=== PATIENT | male | born 1950 | race Caucasian/White ===

== ENCOUNTER → 2020-11-16 10:30 | Outpatient (CLI) | payer OTHER, SELFPAY ==
[2020-11-16 11:48] LABS: COVID19 -Nasal RAPID Negative (Negative)
== END ==
PROVIDERS: Visit Provider Student in an Organized Health Care Education/Training Program
DX: Z01.812 Encounter for preprocedural laboratory examination (principal); Z20.822 Contact with and (suspected) exposure to COVID-19
CPT/HCPCS: 87635

== ENCOUNTER 2020-11-18 12:19 | Observation (INO) | payer OTHER, SELFPAY ==
[2020-11-13 08:41] VITALS: BMI 28.2
[2020-11-18] VITALS (13 sets, daily range): BP systolic 113–142; BP diastolic 54–85; PULSE 57–87; RESP 12–19; TEMP 35.9–36.6; O2SAT 97–100; BMI 28.2
--- NOTE | 2020-11-18 09:48 | DI.RAD.S_ITS ---
PROCEDURE: XR KNEE LT 1TO2V INDICATIONS: post op total knee TECHNIQUE: 2 view(s) of the knee acquired. COMPARISON: None. FINDINGS: Bones: Patient is status post knee joint arthroplasty. Hardware components are in expected positions. Visualized bony structures are intact. Soft tissues: Overlying postoperative changes are noted. IMPRESSION: Expected postoperative appearance of left TKA. Dictated by: Keaton Pryor RRA Interpreted: Kwesi Pringle MD on 11/18/2020 at 16:31 Transcribed by: LAURITA on 11/18/2020 at 16:31 Approved by: Kwesi Pringle M.D. on 11/18/2020 at 17:23
[2020-11-18] MEDS: ACETAMINOPHEN 325 MG TABLET 975 MG PO (12:46)
[2020-11-18] MEDS: CELECOXIB 200 MG CAPSULE PO (12:47)
[2020-11-18] MEDS: LACTATED RINGERS 1,000 ML 42 ML IV ×2 (12:47→15:06)
[2020-11-18] MEDS: PREGABALIN 75 MG CAPSULE PO (12:47)
--- NOTE | 2020-11-18 12:54 | PM.PREOP ---
Pre-operative Note COVID-19 COVID-19 status: Negative Result date/Date tested (Pos, Neg/Pending): 11/16/20 Interval Note History & Physical reviewed/Exam performed by Physician: Yes Changes to H&P: No
[2020-11-18] MEDS: CEFAZOLIN 1 GM VIAL 2 GM IV (13:30)
[2020-11-18] MEDS: TRANEXAMIC ACID 1,000 MG VIAL 1000 MG INJ (13:50)
--- NOTE | 2020-11-18 14:02 | SUR.OPER ---
Supine on padded OR bed. Pillow under head, arms secured on padded armboards <90 degree abduction. Safety belt across torso. Non-operative leg secured with tape over blanket over lower leg. Operative leg secured in DeMayo/Zacarias/Nathe positioner. Foam padded brace at thigh of operative leg.
[2020-11-18] MEDS: BUPIVACAINE LIPOSOME 266 MG/20 ML VIAL INJ (14:11)
[2020-11-18] MEDS: MORPHINE 4 MG/ML INJ INJ (14:12)
[2020-11-18] MEDS: BUPIVACAINE 0.25% W/ EPI 30 ML VIAL 60 ML INJ (14:12)
--- NOTE | 2020-11-18 15:27 | P.OP_ITS ---
Operative Date/Time/Diagnoses Date of procedure: 11/18/20 Time of procedure: 15:27 Pre-op diagnosis: Left knee osteoarthritis Post-op diagnosis: same Procedure & Clinicians Procedure: Left total knee replacement Same procedure as scheduled: Yes Indications: The patient has had progressively worsening left knee pain with radiographic changes consistent with arthritis. Non-operative management has failed and the patient has requested total knee replacement. The risks, benefits and alternatives to surgery were discussed with the patient prior to proceeding. Risks discussed included, but were not limited to, failure to relieve pain, stiffness, infection, nerve damage, deep venous thrombosis, pulmonary embolism, stroke, coma, heart attack, permanent paralysis and , as well as the potential need for eventual revision of the prosthetic. Surgeon: John Hickman Animal Husbandry Technician: Yoni Cm Click Yes if Unassisted: No Anesthesia Type: General and Local Operative Notes Findings: Severe osteoarthritis in all 3 compartments, worst on the medial side. Closure Type: primary Specimen(s): none sent Prosthetic devices, grafts, tissues, transplants, or devices: Implants used in this procedure were manufactured by the [employer] and [employer] and included the BCS II Journey total knee replacement with a size 8 left Oxinium femoral component, 7 left non porous tibial base plate, 9 mm cross-linked polyethylene tibial insert and a 38 mm oval patellar component. Applied: implant(s) Estimated Blood Loss (mL): 50 Blood products transfused: none Tourniquet time (min): 59 Procedure in detail: The patient was seen in the pre-operative area, where the left knee was identified as the operative site and this was marked with murali patrick. The patient received pre-operative antibiotics, and was taken to the operating room and placed on the operative table in the supine position. After satisfactory anesthesia, a laboratory asst out was performed. The left leg was encircled with a tourniquet about the proximal thigh, and the leg was prepared from the toes to the tourniquet with ChloraPrep in the usual fashion and draped through sterile drapes. The leg was elevated and exsanguinated with Eschmark bandage and the tourniquet inflated to 250 mmHg pressure. The knee was approached through an approximately 18 cm incision centered over the patella and carried into the knee through a medial parapatellar arthrotomy. The anterior osteophytes and soft tissues were removed. The rotational landmarks of Ciarra's line and the transepicondylar axis were marked on the femur with electrocautery, and intramedullary guide holes for the femur and tibia were created. The distal femoral cut was made in 6 degrees of valgus using the intramedullary guide at the +2 cut setting due to a pre-existing flexion contracture. The proximal tibial cut was then made using the intramedullary guide, taking 9 mm of bone off the less involved side. The extension gap was checked and the rotation of the femoral component confirmed with the gap balancing blocks. The anterior, posterior and chamfer cuts were then made. The posterior osteophytes and soft tissues were then removed. The posterior capsule was injected with part of a mixture of 60 ml 0.25% Marcaine mixed with 20 ml Exparel and 4 mg of morphine for post-operative pain control. The remainder of this mixture was injected into the capsule and subcutaneous tissues during cement curing. The tibia was prepared with the rotation set by an extra medullary guide. Trial tibial and femoral components were then placed and the intercondylar notch cut through the femoral trial. Range of motion was 0-140 degrees, with good stability throughout the range. The patella was then cut to accommodate the patellar prosthetic. There was no need for a lateral release. The trials were then removed, and the femoral hole plugged with a bone plug. The bone was prepared with pulsatile lavage, and dried with a sponge. Cement was applied and the final prosthetics placed. Excess cement was removed during and after cement curing. After confirming there was no extruded cement posteriorly, the final tibial insert was placed. The knee was copiously irrigated and the tourniquet deflated. Hemostasis was obtained. The capsule was closed with interrupted # 2 polyester sutures. The subcutaneous layer was closed with 3-0 Vicryl, and the skin with a running 3-0 V-Lock suture and Dermabond. An Aquacel Ag dressing was applied and the patient was taken to recovery having tolerated the procedure well. Complications: none Post-operative Condition: stable Disposition: PACU Plan for aftercare: The patient will be maintained on a standard total knee replacement protocol with weight bearing as tolerated. The patient will receive aspirin and sequential compression devices for DVT prophylaxis. The patient will be discharged home when safe for the home environment.
--- NOTE | 2020-11-18 15:43 | SUR.PHASEI ---
received to PACU after general / spinal anesthesia. Airway patent, self maintained. Report from Dr Serna and MARIE Rachel.
--- NOTE | 2020-11-18 16:09 | SUR.PHASEI ---
Transferred to room 225 with belongings bag. Received in room by MARIE Londono.
[2020-11-18] MEDS: LACTATED RINGERS 1,000 ML 100 ML IV (16:41)
[2020-11-18] MEDS: OXYCODONE IR 5 MG TABLET PO (19:12)
[2020-11-18] MEDS: ASPIRIN EC 81 MG TABLET PO (20:10)
[2020-11-18] MEDS: DOCUSATE 100 MG CAPSULE PO (20:14)
[2020-11-18] MEDS: IBUPROFEN 400 MG TABLET PO (20:14)
[2020-11-18] MEDS: ACETAMINOPHEN 325 MG TABLET 650 MG PO (20:14)
[2020-11-18] MEDS: METFORMIN HCL 500 MG TABLET PO (20:15)
[2020-11-18] MEDS: OXYCODONE IR 10 MG TABLET PO (21:22)
--- NOTE | 2020-11-18 22:18 | PC.NURSE ---
Pt arrived from PACU 1640 Alert/orineted, Luiungs clear, SpO2 98% RA IVF infusing as per orders via pump w/o incidence. AC CBG = 114 Aquacell/natali wrap dsg CDI SCD in place. Med w/oxycodone x 2 w/fair relief, Call light w/in reach, bed alarm on for pt safety. COntinue w/plan of care.
[2020-11-19] VITALS (15 sets, daily range): BP systolic 85–143; BP diastolic 47–81; PULSE 55–92; RESP 16–18; TEMP 36.2–37.1; O2SAT 97–100
[2020-11-19] MEDS: IBUPROFEN 400 MG TABLET PO ×5 (00:53→21:35)
[2020-11-19] MEDS: OXYCODONE IR 10 MG TABLET PO (00:58)
[2020-11-19] MEDS: ONDANSETRON 4 MG/2 ML INJ IV (01:14)
[2020-11-19] MEDS: LACTATED RINGERS 1,000 ML 100 ML IV ×3 (01:16→18:19)
--- NOTE | 2020-11-19 01:45 | PC.NURSE ---
0045 Pt stated he had not voided and did not feel that he needed to but was willing to try standing to void. Pt able to stand at the side of the bed and eventually peed but became dizzy and collapsed back onto the bed and into my arms. Pt unresponsive and briefly stopped breathing, was diaphoretic, and extremely pale. Staff Emergency called-Pt very slowly became responsive and started breathing, nausea and vomiting ensued and continues intermittently through 0155 for an approximate total of 350cc emesis out. Pt given Zofran at 0014. IVF infusing as ordered. Pt regained his color but states he still feels nauseated. Pt vs checked and are documented. BG checked at 0146 with a result of 180. Pt gown and bedding changed and Pt cleaned up. Pt denies pain at this time. Bed alarm on for safety, scd's on and running, Pt agrees to call for assistance as needed.
[2020-11-19] MEDS: ONDANSETRON 4 MG ODT PO ×2 (02:26→11:35)
[2020-11-19 05:04] LABS: Hematocrit 38.5 % (41-53); Hemoglobin 12.6 g/dL (13.5-17.5)
--- NOTE | 2020-11-19 07:46 | PM.PNPO.1 ---
Subjective Subjective Date Patient Seen: 11/19/20 Time Patient Seen: 07:46 Interval history: Patient's pain is [id number]. Denies shortness of breath or chest pain. No fever or chills. Some nausea and vomiting yesterday afternoon. Patient got up to use the restroom and had a syncopal episode. Patient then vomited several times afterwards. Patient did remain stable overnight. Exam Vital Signs (past 8 hours): - 11/19/20 00:49 11/19/20 01:14 11/19/20 01:30 Temperature 97.2 F L Pulse Rate 74 83 70 Respiratory Rate 16 18 Blood Pressure 127/71 136/77 132/69 Pulse Oximetry 97 98 98 11/19/20 04:30 Temperature 97.9 F Pulse Rate 78 Respiratory Rate 18 Blood Pressure 136/81 Pulse Oximetry 100 Oxygen Delivery Method Room Air Oxygen Flow Rate 0 Narrative Exam Narrative: 69-year-old male resting comfortably in bed in no apparent distress. Left knee dressing is Clean, dry, intact.. Motor functions intact distal left lower extremity. Left leg is warm and dry. Sensation grossly intact to light touch distal left lower extremity. Objective Labs Result Diagrams: 11/19/20 04:25 Labs: Laboratory Results - last 24 hr 11/19/20 04:25 Hgb 12.6 L Hct 38.5 L PFSH Medical History Depression Diabetes (~02/2020) HTN (hypertension) Neuropathy Osteoarthritis Pneumonia Rheumatic fever Weight loss, intentional Surgical History History of carpal tunnel release of both wrists History of total right hip arthroplasty (02/12/14) History of vasectomy (1976) Social History household members: spouse Smoking Status: Former smoker alcohol intake: former Assessment & Plan Post-op Postoperative Procedures: Procedures Operation Date: 11/18/20 14:45 Actual Procedure Side Surgeon p Total Knee Arthroplasty Left John Hickman MD Postoperative status narrative: Stable. Syncopal episode around 1245 this morning. Postoperative plan narrative: Mobilize with physical therapy. If patient remains stable possible discharge home today. Quality VTE Deep Vein Thrombosis/Pulmonary Embolism Present on Admission: No
[2020-11-19] MEDS: DOCUSATE 100 MG CAPSULE PO ×2 (10:11→21:35)
[2020-11-19] MEDS: ACETAMINOPHEN 325 MG TABLET 650 MG PO ×3 (10:12→21:35)
[2020-11-19] MEDS: lisinopriL 5 MG TABLET PO (10:12)
[2020-11-19] MEDS: METFORMIN HCL 500 MG TABLET PO ×2 (10:12→21:34)
[2020-11-19] MEDS: ASPIRIN EC 81 MG TABLET PO ×2 (10:12→21:35)
[2020-11-19] MEDS: OXYCODONE IR 5 MG TABLET PO (10:46)
--- NOTE | 2020-11-19 11:05 | PT.IIE ---
Current Diagnoses Unilateral primary osteoarthritis, left knee (11/18/20) Surgery Performed Operation Date: 11/18/20 14:45 Actual Procedures p Total Knee Arthroplasty(Left) - John Hickman MD Medical History (Last Reviewed 11/19/20 @ 07:47 by Miguel Ángel Ernandez PA-C) Depression Diabetes (~02/2020) HTN (hypertension) Neuropathy Osteoarthritis Pneumonia Rheumatic fever Weight loss, intentional Physical Therapy Inpatient Evaluation/Re-Eval M1 PT/OT-IP Prior Functional Status Start: 11/19/20 12:36 Freq: NEEDED Status: Active Protocol: Document 11/19/20 11:05 AB (Rec: 11/19/20 12:51 AB [email or web address]) Medical Review Prior Functional Status Medical History Reviewed Yes Communication able to make needs known Mobility and Gait pt stated taht he is independent with all mobiltiies and ambulation without AD Social History Household Members spouse Living Arrangements House Number of Floors (Floors) One Floor Number of Stairs To Enter/Railing? 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 M2 PT-IP Current Condition Start: 11/19/20 12:36 Freq: NEEDED Status: Active Protocol: Document 11/19/20 11:05 AB (Rec: 11/19/20 12:51 AB [email or web address]) Physical Therapy Current Condition Current Condition Evaluation Date 11/19/20 Treatment Diagnosis s/p L TKR; difficulty in walking Onset Date 11/18/20 Weight Bearing Status Weight Bearing Status Weight Bear as Tolerated Allowed Weight Bearing Amount (enter % LLE WBAT or #) (%) M3 PT-IP Subjective Start: 11/19/20 12:36 Freq: NEEDED Status: Active Protocol: Document 11/19/20 11:05 AB (Rec: 11/19/20 12:51 AB [email or web address]) Subjective Physical Therapy Visit Type Type Initial Evaluation Visit Start Time 11:05 Visit Stop Time 11:41 Total Visit Minutes 36 Number of [employer] 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 Physical Therapy Visit Comments Patient Comments pt is agreeable to do PT Therapy Pain Assessment Pain When Pain Assessed At Rest Pain Present Pain Present Pain Reported Location Left Knee Intensity 4 Scale Used increases 5-6/10 with mobility Pain Management Techniques Apply Cold,Distraction, Modification of Treatment, Timing of Activity with Medications M4 PT-IP Mobility and Gait Start: 11/19/20 12:36 Freq: NEEDED Status: Active Protocol: Document 11/19/20 11:05 AB (Rec: 11/19/20 12:51 [email or web address]) PT-Bed Mobility Assessment Supine to Sit Supine to Sit Standby Assistance Sit to Supine Sit to Supine Standby Assistance PT-Transfer Assessment Comments Mobility Comments pt supine in bed. agreed to do PT. heel slide completed with assist. pt has ~ 20-30 deg knee flexion contracture on LLE and only able to bend knee to ~ 40-45 deg PROM with increase guarding and tightness with mobility. BP in supine:122/75 with HOB elevated. attempted supine to sit SBA and cues but pt only sat on ~ 1 sec and laid back on the bed. stated that he feels very shaky and getting nauseated. BP checked: 137/75 . pt agreed to sit up again and completed supine to sit SBA and cues. requried CGA for sitting balance. c/o increase nausea. BP: 97/61. pt sat on EOB for a few more minutes and then c/o getting sweaty. BP checked : 100/42. pt requested to lay back in bed and completed sit to supine SBA. SBA with scooting towards HOB and postioning in bed. BP checked: 108/63. continues to c/o nausea. nurse informed and gave pt medication. BP checked after ~ 2 min: 125/75. pt requested to rest for now. call light and table placed within reach. Gait Assessment Comments Gait Comments unable at this time PT-Balance Assessment Sitting Balance and Reactions Static Sitting Balance Ability Good Dynamic Sitting Balance Ability Good M5 PT-IP Objective Assessments Start: 11/19/20 12:36 Freq: NEEDED Status: Active Protocol: Document 11/19/20 11:05 AB (Rec: 11/19/20 12:51 [email or web address]) Orientation Orientation/Cognition Level of Alertness Alert Orientation Name,Age,Birthday,Month,Date, Year,Day of Week,Place, Situation Language Function Ability No Deficits Noted Safety Awareness Understands Safety Issues Memory Description No Deficits Noted Gross Range of Motion Lower Extremity ROM Assessment Left Impaired Impairments L knee flexion: PROM: ~40-45 deg; L knee extension: 20-30 deg less to 0 deg Strength Lower Extremity Strength Assessment Left Impaired Comments Strength Comments pain limiting mobility of LLE Muscle Tone Muscle Tone WNL Yes M6 PT-IP Treatment Start: 11/19/20 12:36 Freq: NEEDED Status: Active Protocol: Document 11/19/20 11:05 AB (Rec: 11/19/20 12:51 AB [email or web address]) Physical Therapy Treatment Exercises Exercises Heel Slides Education Education Provided Precautions,Weight Bearing Status,Post-Op Packet,Safety M7 PT-IP Assessment and Plan Start: 11/19/20 12:36 Freq: NEEDED Status: Active Protocol: Document 11/19/20 11:05 AB (Rec: 11/19/20 12:51 AB [email or web address]) PT Summary Assessment and Plan Potential Rehabilitation Potential Fair Status of Condition at Evaluation Evolving Summary Impairments Pain,ROM,Strength,Balance, Coordination,Sensation,Tone, Cognition,Bed Mobility, Transfers,Gait,Activity Tolerance Assessment Summary pt unable to tolerate much activity with decrease in BP with sitting on EOB and c/o nausea and sweatiness. pt has h/o LOC last night with nursing. will continue to assess progress and when appropriate, will conduct caregiver training. Goals Bed Mobility Goal Standby Assistance Transfer Goal Standby Assistance,Front Wheeled Walker,Four Wheeled Walker Gait Goal Standby Assistance,Front Wheel Walker,Four Wheel Walker Gait Distance 200 Days to Meet Goals 5 Frequency of Treatment Frequency Of Treatment Twice a Day Treatment Plan Physical Therapy Treatment Plan Bed Mobility Training,Transfer Training,Gait Training, Therapeutic Exercise,Balance Retraining,Post Op Education, Discharge Planning,Hot or Cold Pack,Neuromuscular Re-ed, Coordination Retraining,Manual Therapy Precautions Other Precautions LLE WBAT Recommendations To Nursing Amount of Assist Needed PT/OT Assist Only Discharge Recommendations PT Discharge Recommendations Home with Assistance, Outpatient PT Equipment Needed for Home Before FWW if not safe with 4WW Discharge Transportation Needs at Discharge Private Vehicle
--- NOTE | 2020-11-19 11:06 | PM.DS.1 ---
History of Present Illness History of Present Illness Date Patient Seen: 11/19/20 Time Patient Seen: 11:06 Chief complaint: Knee pain Narrative: Patient status post total knee arthroplasty. Patient had a syncopal episode last night and then got nauseous and vomited a few times. Nausea vomiting has resolved with Zofran. He denies any dizziness. No fever chills. No shortness of breath or chest pain. States his knee pain is well controlled. Discharge Providers Provider Date of admission: 11/18/20 12:19 Discharge Date: 11/19/20 Primary care physician: Doctor Ho MD Consults: 11/18/20 16:29 Consult to Discharge Planning Routine Comment: Consult to Physical Therapy Evaluate & Treat Comment: Physician Instructions: postop TKA protocol Consult to Respiratory Therapy Evaluate & Treat Comment: Physician Instructions: Evaluate and treat Discharge provider: Miguel Ángel Ernandez PA-C Summary Hospital Course Discharge Diagnosis: Left knee osteoarthritis Syncopal episode Hospital Course: Procedure: Left total knee replacement Same procedure as scheduled: Yes Indications: The patient has had progressively worsening left knee pain with radiographic changes consistent with arthritis. Non-operative management has failed and the patient has requested total knee replacement. The risks, benefits and alternatives to surgery were discussed with the patient prior to proceeding. Risks discussed included, but were not limited to, failure to relieve pain, stiffness, infection, nerve damage, deep venous thrombosis, pulmonary embolism, stroke, coma, heart attack, permanent paralysis and , as well as the potential need for eventual revision of the prosthetic. Surgeon: John Hickman Typer: Yoni Cm Click Yes if Unassisted: No Anesthesia Type: General and Local Operative Notes Findings: Severe osteoarthritis in all 3 compartments, worst on the medial side. Closure Type: primary Specimen(s): none sent Prosthetic devices, grafts, tissues, transplants, or devices: Implants used in this procedure were manufactured by the [employer] and [employer] and included the BCS II Journey total knee replacement with a size 8 left Oxinium femoral component, 7 left non porous tibial base plate, 9 mm cross-linked polyethylene tibial insert and a 38 mm oval patellar component. Applied: implant(s) Estimated Blood Loss (mL): 50 Blood products transfused: none Tourniquet time (min): 59 Patient admitted to the hospital for left total knee arthroplasty. Patient consented to the same. Patient taken to the OR on 11/18/2020 for left total knee arthroplasty. Patient back in his room recovering well as in stable condition. Early this morning patient was trying to urinate and has syncopal episode. Patient developed some nausea vomiting which resolved with Zofran. Patient has remained stable. He will work with physical therapy. Patient will be discharged home today after physical therapy if stable for home environment Exam Vital Signs (past 8 hours): - 11/19/20 04:30 11/19/20 08:00 11/19/20 10:12 Temperature 97.9 F 98.7 F Pulse Rate 78 74 74 Respiratory Rate 18 18 Blood Pressure 136/81 143/62 H 143/62 H Pulse Oximetry 100 99 Oxygen Delivery Method Room Air Oxygen Flow Rate 0 Objective Labs Result Diagrams: 11/19/20 04:25 Labs: Laboratory Results - last 24 hr 11/19/20 04:25 Hgb 12.6 L Hct 38.5 L PFSH Medical History Depression Diabetes (~02/2020) HTN (hypertension) Neuropathy Osteoarthritis Pneumonia Rheumatic fever Weight loss, intentional Surgical History History of carpal tunnel release of both wrists History of total right hip arthroplasty (02/12/14) History of vasectomy (1976) Social History household members: spouse Smoking Status: Former smoker alcohol intake: former Discharge Assessment & Plan Assessment and Plan Assessment: Patient progressing as expected status post left total knee arthroplasty Plan of Treatment: Weight-bearing as tolerated. Patient will be maintained on a standard total knee replacement protocol. Aspirin for DVT prophylaxis. Follow-up in 2 weeks [facility]. Discharge Plan Discharge Plan Patient Disposition: Home Discharge orders & Medications Prescriptions: New acetaminophen 325 mg Tablet 650 mg PO TID Qty: 60 RF: 0 aspirin 81 mg Tablet,Delayed Release (Dr/Ec) 81 mg PO BID Qty: 60 RF: 0 ibuprofen 400 mg Tablet 400 mg PO Q4HR Qty: 60 RF: 0 oxycodone 5 mg Tablet 5 mg PO Q3HR PRN (Reason: Pain, Moderate (4-6)) Qty: 40 RF: 0 polyethylene glycol 3350 17 gram Powder In Packet 17 gm PO DAILY PRN (Reason: Constipation) Qty: 10 RF: 0 Continued metformin 500 mg Tablet 500 mg PO BID RF: 0 lisinopril 5 mg Tablet 5 mg PO DAILY RF: 0 Discontinued aspirin [Aspirin Low-Strength] 81 mg Tablet,Delayed Release (Dr/Ec) 81 mg PO DAILY RF: 0 acetaminophen 500 mg Tablet 1,000 mg PO Q6H PRN (Reason: Pain) RF: 0 Follow up/Referrals: Doctor Teague MD [Primary Care Provider] - John Hickman MD [Physician] - (2 weeks) Diet/Activity/Treatments Diet: Carb-consistent/Diabetic Activity: Weight-bearing as tolerated Cold/Heat Therapy: Apply ice to knee as needed Other treatments: Justus wrap may be removed in 48-72 hours, dressing should remain in place till postop appointment Skin/Wound/Dressing Care Report to your healthcare provider any signs of infection, such as:: chills, fever, increased pain, unusual drainage and unusual redness Dressing: Keep dressing clean and dry. Visit Report/Discharge Packet Instructions: DI for Knee Replacement, DI for Prescription Opioid Use Stand Alone Forms: Surgery Discharge Discharge Data Primary Care Provider: Doctor Ho Attending Provider: John Hickman Quality VTE Deep Vein Thrombosis/Pulmonary Embolism Present on Admission: No
--- NOTE | 2020-11-19 11:51 | CM.DANOTE ---
Discharge Planning/Care Management Advanced directive, confirm from FAMILY Start: 11/18/20 16:36 Freq: Q24H Status: Active Protocol: Document 11/18/20 16:52 KMD (Rec: 11/18/20 16:52 KMD [id number]) Advance Directive, confirm on record Time 16:52 Person contacted Patient Copy received No CM Discharge Assessment Start: 11/19/20 11:50 Freq: Status: Active Protocol: Document 11/19/20 11:51 ITV (Rec: 11/19/20 11:51 ITV [id number]) Discharge Planning Assessment Advance Directives? Yes Advance Directives on File No History Provided By Patient Prior Living Arrangements House Household Members spouse Review Status In Process Pre-Anesthesia Assessment Start: 11/13/20 08:41 Freq: Status: Active Protocol: Document 11/13/20 08:41 CAB (Rec: 11/13/20 09:26 CAB [id number]) Pre-Anesthesia Assessment Patient Information Reviewed Via Phone Assessment Assessment Completed With Patient H&P Completed Within 30 Days No: Not identified at time of review Comment Labs/EKG done per pt, not here , COVID screen @ [facility] 11/16/20 Primary Care Provider Mack Gallagher Seen Specialist in Last 12 Months Yes Specialist Seen Orthopedist Primary 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 Height 187.96 cm Weight 99.79 kg Body Mass Index (BMI) 28.2 Hearing Ability Hard of Hearing Visual Assist Glasses Dentition Type Teeth, Natural Present Barriers to Learning None Hx Anesthesia Reactions No Hx Family Anesthesia Reaction No Hx Malignant Hyperthermia No Hx Blood Transfusions No Anesthesia Review Requested No alcohol intake former Smoking Status Former smoker how long ago did patient quit smoking 09/30/72 Substance Use Type does not use Pain Present Pain Reported Musculoskeletal Symptoms Abnormal Gait,Difficulty Walking,Joint Pain,Numbness History of Falling (Recent or History of No ) Patient is completely paralyzed or No completely immobile Mental Status Oriented to own ability Is patient on oxygen? No Does patient have ASKEW/SOB No Hx Sleep Apnea No Currently Taking a Beta Francis No Hx Chest Pain No Hx SOB No Hx Syncope or Dizziness Yes: Hx vertigo Anti-Coagulant Therapy No Has a Social Service Director No Cardiac Testing No Hx Pacemaker/ICD No Pacemaker Rep Required? No Cardiac Clearance Received Not Applicable Diet Type At Home Other dysphagia No: Whole 30 diet Urinary Catheter Present No Hx Urinary Self Catheterization No Diabetes Yes: Pt checks blood sugar twice a day Presence of External or Internal Medical Yes: Right hip Devices Have you had any close contact with No someone diagnosed with COVID-19? Marital Status Lives With spouse Prior Living Arrangements House Number of Floors (Floors) Two Floors Support System Spouse Does the Patient Have Assistance After Yes Surgery Patient Discharge Plan Description Return Home Comment Pt advised overnight length of stay per surgeon Feels Safe in Current Environment Yes Been Physically Hurt or Threatened By a No Person in Current Environment Do you have thoughts of harming yourself None or others? Are you currently considering suicide? No Do you have a plan to hurt yourself or No Plan others? Do You Have Any Spiritual Beliefs That No May Affect Your HC Choices? Do You Have Any Cultural Practices That No May Affect Your HC Choices? Who Can We Speak to About Patient's Care Family, friends Identifying Code for Release of Patient Declines to issue Information Health Care Proxy/Next of Kin Bhakti () Health Care Proxy or cell: Emergency Contact Name Bhakti () Emergency Contact or cell: [phone] Advance Directives? Yes Advance Directives on File No Requested Patient Bring Advanced Yes Directives DOS Power of Fixed Wing Pilot Yes Power of Fixed Wing Pilot Name Bhakti () Power of Fixed Wing Pilot or cell: PAC Instructions Diabetes instructions,Durable medical equipment,Medications to take/avoid,Nasal antibiotic ,No ETOH/petroleum product on skin DOS,NPO,Post-op transportation,Pre-surgical wash,Sturdy shoes/comfortable clothes,Do not bring valuables and remove jewelry
--- NOTE | 2020-11-19 11:53 | CM.DANOTE ---
Addendum entered by Macy Rodriguez LPN 11/19/20 12:07: Met with pt, who is found lying flat in bed, cloth on forehead. Introduced self and role. Pt says he was working with PT this morning and had another event similar to the previous. I got very weak and dizzy and they say my BP was down by 40 points. PT has just started and he was returned to the bed. Pt says he is still hoping he will be ok to go later today but is aware that KRISTINE Ernandez has said that he will need to be cleared by PT first. His Мария will be taking him home at d/c. Will follow prn. Original Note: Discharge Planning/Care Management DCP: assessment: case received, EMR reviewed and discussed in Team Rounds: PT was set to see pt for first time this morning. No note is yet available. Ortho KRISTINE Ernandez has placed a d/c order for today but states to CM team that he is aware of the unresponsive episode of early this morning, he was not sure if pt would be ready to go today and his dc summary says that pt will d/c IF cleared by PT and stable for home environment. Admission status: SDC to OBS: per EDGARDO RN team Payer: Chance Freitas Surgeon: Dr. Hickman Will check in with pt now. Advanced directive, confirm from FAMILY Start: 11/18/20 16:36 Freq: Q24H Status: Active Protocol: Document 11/18/20 16:52 KMD (Rec: 11/18/20 16:52 KMD [id number]) Advance Directive, confirm on record Time 16:52 Person contacted Patient Copy received No CM Discharge Assessment Start: 11/19/20 11:50 Freq: Status: Active Protocol: Document 11/19/20 11:51 ITV (Rec: 11/19/20 11:51 ITV [id number]) Discharge Planning Assessment Advance Directives? Yes Advance Directives on File No History Provided By Patient Prior Living Arrangements House Household Members spouse Review Status In Process Pre-Anesthesia Assessment Start: 11/13/20 08:41 Freq: Status: Active Protocol: Document 11/13/20 08:41 CAB (Rec: 11/13/20 09:26 CAB [id number]) Pre-Anesthesia Assessment Patient Information Reviewed Via Phone Assessment Assessment Completed With Patient H&P Completed Within 30 Days No: Not identified at time of review Comment Labs/EKG done per pt, not here , COVID screen @ [facility] 11/16/20 Primary Care Provider Mack Gallagher Seen Specialist in Last 12 Months Yes Specialist Seen Orthopedist Primary Language Citizen Of [place] Vocational Rehab Consultant Required No Height 187.96 cm Weight 99.79 kg Body Mass Index (BMI) 28.2 Hearing Ability Hard of Hearing Visual Assist Glasses Dentition Type Teeth, Natural Present Barriers to Learning None Hx Anesthesia Reactions No Hx Family Anesthesia Reaction No Hx Malignant Hyperthermia No Hx Blood Transfusions No Anesthesia Review Requested No alcohol intake former Smoking Status Former smoker how long ago did patient quit smoking 09/30/72 Substance Use Type does not use Pain Present Pain Reported Musculoskeletal Symptoms Abnormal Gait,Difficulty Walking,Joint Pain,Numbness History of Falling (Recent or History of No ) Patient is completely paralyzed or No completely immobile Mental Status Oriented to own ability Is patient on oxygen? No Does patient have ASKEW/SOB No Hx Sleep Apnea No Currently Taking a Beta Francis No Hx Chest Pain No Hx SOB No Hx Syncope or Dizziness Yes: Hx vertigo Anti-Coagulant Therapy No Has a Oil Spraying Machine Operator No Cardiac Testing No Hx Pacemaker/ICD No Pacemaker Rep Required? No Cardiac Clearance Received Not Applicable Diet Type At Home Other dysphagia No: Whole 30 diet Urinary Catheter Present No Hx Urinary Self Catheterization No Diabetes Yes: Pt checks blood sugar twice a day Presence of External or Internal Medical Yes: Right hip Devices Have you had any close contact with No someone diagnosed with COVID-19? Marital Status Lives With spouse Prior Living Arrangements House Number of Floors (Floors) Two Floors Support System Spouse Does the Patient Have Assistance After Yes Surgery Patient Discharge Plan Description Return Home Comment Pt advised overnight length of stay per surgeon Feels Safe in Current Environment Yes Been Physically Hurt or Threatened By a No Person in Current Environment Do you have thoughts of harming yourself None or others? Are you currently considering suicide? No Do you have a plan to hurt yourself or No Plan others? Do You Have Any Spiritual Beliefs That No May Affect Your HC Choices? Do You Have Any Cultural Practices That No May Affect Your HC Choices? Who Can We Speak to About Patient's Care Family, friends Identifying Code for Release of Patient Declines to issue Information Health Care Proxy/Next of Kin Bhakti () Health Care Proxy or cell: [phone] Emergency Contact Name Bhakti () Emergency Contact or cell: Advance Directives? Yes Advance Directives on File No Requested Patient Bring Advanced Yes Directives DOS Power of Bullet Swaging Machine Adjuster Yes Power of Bullet Swaging Machine Adjuster Name Bhakti () Power of Bullet Swaging Machine Adjuster or cell: PAC Instructions Diabetes instructions,Durable medical equipment,Medications to take/avoid,Nasal antibiotic ,No ETOH/petroleum product on skin DOS,NPO,Post-op transportation,Pre-surgical wash,Sturdy shoes/comfortable clothes,Do not bring valuables and remove jewelry
--- NOTE | 2020-11-19 14:05 | PT.IPTN ---
Current Diagnoses Unilateral primary osteoarthritis, left knee (11/18/20) Surgery Performed Operation Date: 11/18/20 14:45 Actual Procedures p Total Knee Arthroplasty(Left) - John Hickman MD Physical Therapy Treatment Note M2 PT-IP Current Condition Start: 11/19/20 12:36 Freq: NEEDED Status: Active Protocol: Document 11/19/20 11:05 AB (Rec: 11/19/20 12:51 AB [id number]) Physical Therapy Current Condition Current Condition Evaluation Date 11/19/20 Treatment Diagnosis s/p L TKR; difficulty in walking Onset Date 11/18/20 Weight Bearing Status Weight Bearing Status Weight Bear as Tolerated Allowed Weight Bearing Amount (enter % LLE WBAT or #) (%) M3 PT-IP Subjective Start: 11/19/20 12:36 Freq: NEEDED Status: Active Protocol: Document 11/19/20 14:05 AB (Rec: 11/19/20 17:29 AB [id number]) Subjective Physical Therapy Visit Type Type Treatment Note Visit Start Time 14:05 Visit Stop Time 14:42 Total Visit Minutes 37 Number of TEST AUTOMATION ARCHITECT Visits 0 Physical Therapy Visit Comments Patient Comments pt is agreeable to do PT; spouse in room with pt Therapy Pain Assessment Pain When Pain Assessed At Rest Pain Present Pain Present Pain Reported Location Left Knee Intensity 2 Scale Used Numeric (0 - 10) Pain Management Techniques Apply Cold,Distraction, Modification of Treatment,Re- positioning,Timing of Activity with Medications M4 PT-IP Mobility and Gait Start: 11/19/20 12:36 Freq: NEEDED Status: Active Protocol: Document 11/19/20 14:05 AB (Rec: 11/19/20 17:29 AB [id number]) PT-Bed Mobility Assessment Supine to Sit Supine to Sit Standby Assistance Sit to Supine Sit to Supine Standby Assistance PT-Transfer Assessment Sit to and From Stand Sit to and from Stand Minimal Assistance,1 Person Assistance,Use of Upper Extremities Equipment Transfer Assistive Device Gait Belt,Front Wheeled Walker Orthotic/Prosthetic Devices or Brace: No Comments Mobility Comments Pt agreeable to do PT. BP monitored. BP in supine 117/ 63. pt completed supine to sit SBA. able to scoot on EOB SBA. BP in sittin/69. pt was able to sit on EOB for another 2 min without c/o dizziness/nausea/ lightheadedness. pt completed sit to stand min A and cues. was able to maintain standing CGA using FWW for support. BP in standin/29. BP rechecked: 85/47. pt stated that he is feeling hot and lightheaded and sweaty again. nurse alerted. instructed pt to sit down a to lay back in bed. sit to supine SBA. BP checked: 105/59. positioned pt in bed. BP checked in supine at end of tx session: 121/70. call light and table place within reach. informed pt regarding mobility tolerance and caregiver training if needed. spouse stated that she has to work tomorrow but can come in the afternoon for training if needed. M5 PT-IP Objective Assessments Start: 11/19/20 12:36 Freq: NEEDED Status: Active Protocol: Document 11/19/20 11:05 AB (Rec: 11/19/20 12:51 AB [id number]) Orientation Orientation/Cognition Level of Alertness Alert Orientation Name,Age,Birthday,Month,Date, Year,Day of Week,Place, Situation Language Function Ability No Deficits Noted Safety Awareness Understands Safety Issues Memory Description No Deficits Noted Gross Range of Motion Lower Extremity ROM Assessment Left Impaired Impairments L knee flexion: PROM: ~40-45 deg; L knee extension: 20-30 deg less to 0 deg Strength Lower Extremity Strength Assessment Left Impaired Comments Strength Comments pain limiting mobility of LLE Muscle Tone Muscle Tone WNL Yes M6 PT-IP Treatment Start: 11/19/20 12:36 Freq: NEEDED Status: Active Protocol: Document 11/19/20 14:05 AB (Rec: 11/19/20 17:29 AB [id number]) Physical Therapy Treatment Education Education Provided Safety M7 PT-IP Assessment and Plan Start: 11/19/20 12:36 Freq: NEEDED Status: Active Protocol: Document 11/19/20 14:05 AB (Rec: 11/19/20 17:29 AB [id number]) PT Summary Assessment and Plan Potential Rehabilitation Potential Fair Summary Impairments Pain,ROM,Strength,Balance, Coordination,Sensation,Tone, Cognition,Bed Mobility, Transfers,Gait,Activity Tolerance Progress Towards Goals Slow Progress due to Activity Tolerance Assessment Summary pt continues to have orthostatic hypotension with BP decreasin/47 with c/o lightheadedness and sweating. completed standing min A using FWW but no ambulation at this time due to decrease in BP. will continue to assess progress and will conduct caregiver training when appropriate. Goals Bed Mobility Goal Standby Assistance Transfer Goal Standby Assistance,Front Wheeled Walker,Four Wheeled Walker Gait Goal Standby Assistance,Front Wheel Walker,Four Wheel Walker Gait Distance 200 Days to Meet Goals 5 Frequency of Treatment Frequency Of Treatment Twice a Day Treatment Plan Physical Therapy Treatment Plan Bed Mobility Training,Transfer Training,Gait Training, Therapeutic Exercise,Balance Retraining,Post Op Education, Discharge Planning,Hot or Cold Pack,Neuromuscular Re-ed, Coordination Retraining,Manual Therapy Precautions Other Precautions LLE WBAT Recommendations To Nursing Amount of Assist Needed 1 Person Assist Discharge Recommendations PT Discharge Recommendations Home with Assistance, Outpatient PT Equipment Needed for Home Before FWW if not safe with 4WW Discharge
--- NOTE | 2020-11-19 14:34 | PC.NURSE ---
Page to Travis Ernandez regarding patients hypotensive episode after PT session. Left message with operating room.
--- NOTE | 2020-11-19 14:57 | PC.NURSE ---
Notified Dr. Stanley via phone, left message with [place] office. Patient no longer hypotensive and HR back in the 70/80s.
--- NOTE | 2020-11-19 15:48 | PC.NURSE ---
Addendum entered by Karol Portillo R.N. 11/19/20 22:21: Pt denies issues this evening. Tylenol & ibuprofen good for pain IVF continue as per orders. Call light w/in reach, bed alarm on for pt safety. Continue w/plan of care. Original Note: Pt alert/ oriented. Lungs clear, SpO2 100% RA IVF infusing into RFA via pump w/o incidence. Dsg to left surgical knee CDI Call light w/in reach, bed alarm on for pt safety,
[2020-11-19 16:00] LABS: Hematocrit 37.2 % (41-53); Hemoglobin 12.5 g/dL (13.5-17.5)
[2020-11-20] VITALS (7 sets, daily range): BP systolic 116–140; BP diastolic 66–77; PULSE 71–89; RESP 18; TEMP 36.2–36.6; O2SAT 95–97
[2020-11-20] MEDS: IBUPROFEN 400 MG TABLET PO ×4 (00:24→12:18)
[2020-11-20] MEDS: SODIUM CHLORIDE 0.9% FLUSH 10 ML IV ×2 (00:35→08:48)
--- NOTE | 2020-11-20 07:40 | PM.DS.1 ---
History of Present Illness History of Present Illness Date Patient Seen: 11/20/20 Time Patient Seen: 07:40 Chief complaint: Knee pain Narrative: History and physical is contained in the chart previously completed note. Please refer to that note for this information. Discharge Providers Provider Date of admission: 11/18/20 12:19 Discharge Date: 11/20/20 Primary care physician: Doctor Ho MD Consults: 11/18/20 16:29 Consult to Discharge Planning Routine Comment: Consult to Physical Therapy Evaluate & Treat Comment: Physician Instructions: postop TKA protocol Consult to Respiratory Therapy Evaluate & Treat Comment: Physician Instructions: Evaluate and treat Discharge provider: John Hickman MD Summary Hospital Course Discharge Diagnosis: 1. Left knee osteoarthritis 2. Mild post hemorrhagic anemia 3. Orthostatic hypotension Hospital Course: The patient was admitted the hospital and taken directly to the operating room on November 18, 2020. He underwent a left total knee replacement without significant complications. On postoperative day 1 his physical therapy progress was slowed by orthostatic hypotension. He was encouraged to use oral fluid. His doses of oxycodone were reduced and this also seemed to help the feeling of dizziness. On the morning of postoperative day 2 he has had no trouble getting up overnight. It is anticipated he will be ready for discharge today. Status at Discharge Cognitive/behavioral status at discharge: oriented Functional status at discharge: uses cane/walker Overall status at discharge: patient is progressing back to baseline Time Spent with Patient Time spent: Less than 30 minutes Exam Vital Signs (past 8 hours): - 11/20/20 00:20 11/20/20 00:21 11/20/20 05:19 Temperature 97.2 F L Pulse Rate 81 Pulse Rate [Orthostatic Lying] 81 81 Pulse Rate [Orthostatic Sitting] 81 78 Pulse Rate [Orthostatic Standing] 88 89 Respiratory Rate 18 Blood Pressure 129/77 Blood Pressure [Orthostatic Lying] 129/77 128/69 Blood Pressure [Orthostatic Sitting] 131/72 128/66 Blood Pressure [Orthostatic Standing] 123/66 126/75 Pulse Oximetry 97 11/20/20 05:21 Temperature 97.9 F Pulse Rate 81 Pulse Rate [Orthostatic Lying] Pulse Rate [Orthostatic Sitting] Pulse Rate [Orthostatic Standing] Respiratory Rate 18 Blood Pressure 128/69 Blood Pressure [Orthostatic Lying] Blood Pressure [Orthostatic Sitting] Blood Pressure [Orthostatic Standing] Pulse Oximetry 96 Oxygen Delivery Method Room Air Oxygen Flow Rate 0 Narrative Exam Narrative: Left knee wound is dressed with no drainage on the bandage. Calf is soft. Light touch and motion are intact in the left lower extremity. 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 This appears to have resolved. He appears to be ready for discharge today. Plan of Treatment: Weight-bearing as tolerated. Patient will be maintained on a standard total knee replacement protocol. Aspirin for DVT prophylaxis. Follow-up in 2 weeks [facility]. Discharge Plan Discharge Plan Patient Disposition: Home Discharge orders & Medications Prescriptions: New acetaminophen 325 mg Tablet 650 mg PO TID Qty: 60 RF: 0 aspirin 81 mg Tablet,Delayed Release (Dr/Ec) 81 mg PO BID Qty: 60 RF: 0 ibuprofen 400 mg Tablet 400 mg PO Q4HR Qty: 60 RF: 0 oxycodone 5 mg Tablet 5 mg PO Q3HR PRN (Reason: Pain, Moderate (4-6)) Qty: 40 RF: 0 polyethylene glycol 3350 17 gram Powder In Packet 17 gm PO DAILY PRN (Reason: Constipation) Qty: 10 RF: 0 Continued metformin 500 mg Tablet 500 mg PO BID RF: 0 lisinopril 5 mg Tablet 5 mg PO DAILY RF: 0 Discontinued aspirin [Aspirin Low-Strength] 81 mg Tablet,Delayed Release (Dr/Ec) 81 mg PO DAILY RF: 0 acetaminophen 500 mg Tablet 1,000 mg PO Q6H PRN (Reason: Pain) RF: 0 Follow up/Referrals: Ho,MD Carolann [Primary Care Provider] - John Hickman MD [Physician] - (2 weeks) Diet/Activity/Treatments Diet: Carb-consistent/Diabetic Activity: Weight-bearing as tolerated Cold/Heat Therapy: Apply ice to knee as needed Other treatments: Justus wrap may be removed in 48-72 hours, dressing should remain in place till postop appointment Skin/Wound/Dressing Care Report to your healthcare provider any signs of infection, such as:: chills, fever, increased pain, unusual drainage and unusual redness Dressing: Keep dressing clean and dry. Visit Report/Discharge Packet Instructions: DI for Knee Replacement, DI for Constipation, How to Prevent Falls, DI for Prescription Opioid Use Stand Alone Forms: Surgery Discharge Discharge Data Primary Care Provider: Doctor Ho Attending Provider: John Hickman Quality VTE Deep Vein Thrombosis/Pulmonary Embolism Present on Admission: No
[2020-11-20] MEDS: ACETAMINOPHEN 325 MG TABLET 650 MG PO (08:44)
[2020-11-20] MEDS: DOCUSATE 100 MG CAPSULE PO (08:45)
[2020-11-20] MEDS: ASPIRIN EC 81 MG TABLET PO (08:45)
[2020-11-20] MEDS: METFORMIN HCL 500 MG TABLET PO (08:45)
[2020-11-20] MEDS: lisinopriL 5 MG TABLET PO (08:45)
--- NOTE | 2020-11-20 12:04 | PT.IPTN ---
Current Diagnoses Unilateral primary osteoarthritis, left knee (11/18/20) Surgery Performed Operation Date: 11/18/20 14:45 Actual Procedures p Total Knee Arthroplasty(Left) - John Hickman MD Physical Therapy Treatment Note M2 PT-IP Current Condition Start: 11/19/20 12:36 Freq: NEEDED Status: Active Protocol: Document 11/20/20 11:50 MA (Rec: 11/20/20 12:04 MA [id number]) Physical Therapy Current Condition Current Condition Evaluation Date 11/19/20 Treatment Diagnosis s/p L TKR; difficulty in walking Onset Date 11/18/20 Weight Bearing Status Weight Bearing Status Weight Bear as Tolerated Allowed Weight Bearing Amount (enter % LLE WBAT or #) (%) M3 PT-IP Subjective Start: 11/19/20 12:36 Freq: NEEDED Status: Active Protocol: Document 11/20/20 11:50 MA (Rec: 11/20/20 12:04 MA [id number]) Subjective Physical Therapy Visit Type Type Treatment Note Visit Start Time 11:15 Visit Stop Time 11:47 Total Visit Minutes 32 Number of BUTT TRIMMER Visits 1 Physical Therapy Visit Comments Patient Comments Pt agreeable to PT. Pt states his is on her way but won 't be here for about 1 hour Therapy Pain Assessment Pain When Pain Assessed During Mobility Pain Present Pain Present Pain Reported Location Left Knee Intensity 2 Scale Used Numeric (0 - 10) Pain Management Techniques Apply Cold,Distraction, Modification of Treatment,Re- positioning,Timing of Activity with Medications M4 PT-IP Mobility and Gait Start: 11/19/20 12:36 Freq: NEEDED Status: Active Protocol: Document 11/20/20 11:50 MA (Rec: 11/20/20 12:04 MA [id number]) PT-Bed Mobility Assessment Supine to Sit Supine to Sit Standby Assistance Sit to Supine Sit to Supine Standby Assistance PT-Transfer Assessment Sit to and From Stand Sit to and from Stand Standby Assistance,Use of Upper Extremities Equipment Transfer Assistive Device Gait Belt,Front Wheeled Walker Orthotic/Prosthetic Devices or Brace: No Comments Mobility Comments Pt found in chair upon arrival . He needs assistance lowering foot rest but is able to be SBA for sit<>stands today. Ambulated 200 feet SBA with gait belt and FWW. Pt requires cues for knee flexion to avoid dragging LLE. Returns to room and performs exercises supine in bed: quad sets, heel slides, ankle pumps. Pt able to perform all bed mobility SBA. Pt was then able to stand and get himself dressed independently and return to room chair. Gait Assessment Gait Gait Assistance Required: Standby Assistance Distance (Feet) 200 Able to Maintain Weight Bearing Status Yes During Gait Assistive Devices Assistive Device Gait Belt,Front Wheeled Walker Gait Deviations General Gait Pattern Antalgic,Decreased Stride Length,Decreased Feet Clearance Factors Limiting Gait Function Factors Limiting Gait Function Decreased Strength,Limited Range of Motion,Pain Comments Gait Comments Pt able to walk SBA 200 ft today with gait belt and FWW. He needs minor cues as he fatigues for knee flexion or will drag LLE. PT-Balance Assessment Sitting Balance and Reactions Static Sitting Balance Ability Normal Dynamic Sitting Balance Ability Normal Standing Balance and Reactions Static Standing Balance Ability Good Dynamic Standing Balance Ability Good Comments Other Balance Tests/Deviations/Treatment Pt able to stand and put : clothes on independently showing good standing balance M5 PT-IP Objective Assessments Start: 11/19/20 12:36 Freq: NEEDED Status: Active Protocol: Document 11/19/20 11:05 AB (Rec: 11/19/20 12:51 AB [id number]) Orientation Orientation/Cognition Level of Alertness Alert Orientation Name,Age,Birthday,Month,Date, Year,Day of Week,Place, Situation Language Function Ability No Deficits Noted Safety Awareness Understands Safety Issues Memory Description No Deficits Noted Gross Range of Motion Lower Extremity ROM Assessment Left Impaired Impairments L knee flexion: PROM: ~40-45 deg; L knee extension: 20-30 deg less to 0 deg Strength Lower Extremity Strength Assessment Left Impaired Comments Strength Comments pain limiting mobility of LLE Muscle Tone Muscle Tone WNL Yes M6 PT-IP Treatment Start: 11/19/20 12:36 Freq: NEEDED Status: Active Protocol: Document 11/20/20 11:50 MA (Rec: 11/20/20 12:04 MA [id number]) Physical Therapy Treatment Exercises Exercises Ankle Pumps,Quad Sets,Heel Slides Education Education Provided Weight Bearing Status,Post-Op Packet,Safety Other Treatments Other Treatment Performed Pt has 4WW for use at home. Educated pt on proper height to adjust to since walker is still in spouse's car. Reviewed all exercises in d/c packet with pt M7 PT-IP Assessment and Plan Start: 11/19/20 12:36 Freq: NEEDED Status: Active Protocol: Document 11/20/20 11:50 MA (Rec: 11/20/20 12:04 MA [id number]) PT Summary Assessment and Plan Potential Rehabilitation Potential Good Status of Condition at Evaluation Stable Summary Impairments Pain,ROM,Strength,Balance, Coordination,Sensation,Tone, Cognition,Bed Mobility, Transfers,Gait,Activity Tolerance Progress Towards Goals Safe For Discharge,Goals Met Assessment Summary Pt was able to complete all goals today and ambulated 200 ft with gait belt and FWW SBA. Educated pt on proper walker height to adjust 4WW at home and reviewed exercises in d/c packet with pt able to perform independently in bed. Pt was able to independently dress himself and was left in room chair, all needs within reach. Nurse informed of pt's status . Goals Bed Mobility Goal Standby Assistance Transfer Goal Standby Assistance,Front Wheeled Walker,Four Wheeled Walker Gait Goal Standby Assistance,Front Wheel Walker,Four Wheel Walker Gait Distance 200 Days to Meet Goals 5 Frequency of Treatment Frequency Of Treatment Twice a Day Treatment Plan Physical Therapy Treatment Plan Bed Mobility Training,Transfer Training,Gait Training, Therapeutic Exercise,Balance Retraining,Post Op Education, Discharge Planning,Hot or Cold Pack,Neuromuscular Re-ed, Coordination Retraining,Manual Therapy Precautions Other Precautions LLE WBAT Recommendations To Nursing Amount of Assist Needed Standby Assistance,1 Person Assist Discharge Recommendations PT Discharge Recommendations Home with Assistance, Outpatient PT Equipment Needed for Home Before FWW if not safe with 4WW Discharge Transportation Needs at Discharge Private Vehicle
--- NOTE | 2020-11-20 12:26 | PC.NURSE ---
Discharge note: Discharge instructions given to patient and spouse Мария, discussed importance of F/U with Ortho Dr. Hickman in 2 weeks, dressing care, new medications, home safety, mobility precautions, and s/sx of infection. Both verbalized understanding of instructions.
--- NOTE | 2020-11-20 13:08 | PC.NURSE ---
Discharge: Pt d/c home via auto, voiced no concerns.
== END 2020-11-20 12:40 | disposition home or self-care (01) ==
LOC: OR 12:23 → AC 11-19 08:29
PROVIDERS: Physician Assistant Medical; Admitting Provider Orthopaedic Surgery; Referring Provider Orthopaedic Surgery; Visit Provider Orthopaedic Surgery
PROC: 0SRD0JZ Replacement of Left Knee Joint with Synthetic Substitute, Open Approach (ICD-10-PCS; CPT 27447; principal; 2020-11-18 14:45)
DX: M17.12 Unilateral primary osteoarthritis, left knee (principal); E11.9 Type 2 diabetes mellitus without complications; I10 Essential (primary) hypertension; Z79.84 Long term (current) use of oral hypoglycemic drugs
CPT/HCPCS: 27447; 36415; 73560; 82962; 85014; 85018; 94760; 97110; 97116; 97162; 97530; C1776; G0378; C9290; J0690; J2250; J2270; J2405; J2704; J3010

== ENCOUNTER → 2022-12-01 16:05 | Outpatient (CLI) | payer OTHER, SELFPAY ==
[2020-11-18 16:34] VITALS: BMI 28.2
[2022-12-01 16:45] LABS: Add Manual Diff / Slide Review NO; Basophils Absolute Auto 0 /uL (0-100); Basophils Percent Auto 0.7 % (0-2); Eosinophils Absolute Auto 100 /uL (0-450); Eosinophils Percent Auto 1.8 % (2-4); Hematocrit 42.7 % (41-53); Hemoglobin 14.6 g/dL (13.5-17.5); Lymphocytes Absolute Auto 2400 /uL (1100-4500); Lymphocytes Percent Auto 37.2 % (25-40); Mean Corpuscular HGB Conc 34.1 % (30-36); Mean Corpuscular Hemoglobin 31.4 PG (26-34); Mean Corpuscular Volume 92.2 fL (80-100); Monocytes Absolute Auto 500 /uL (0-900); Monocytes Percent Auto 7.6 % (3-14); Neutrophils Absolute Auto 3400 /uL (1500-7000); Neutrophils Percent Auto 52.7 % (50-75); Platelet Count 215 X10^3/uL (150-400); Red Blood Cell Count 4.64 X10^6/uL (4.5-5.9); Red Cell Distribution Width 13.2 % (11.6-14.8); White Blood Cell Count 6.5 X10^3/uL (4.5-11.0)
[2022-12-01 16:58] LABS: BUN Creatinine Ratio 16.5 (6-22); Blood Urea Nitrogen 17 mg/dL (9-20); Calcium 8.9 mg/dL (8.4-10.2); Carbon Dioxide 28 mmol/L (22-32); Chloride 106 mmol/L (98-107); Estimated Glomerular Filt Rate > 60 mL/min (>60); Glucose 92 mg/dL (80-110); HEMOLYSIS < 15 (0-50); Potassium 4.1 mmol/L (3.4-5.1); Sodium 140 mmol/L (137-145)
[2022-12-01 17:06] LABS: Appearance Urine UA CLEAR; Bilirubin Urine UA NEGATIVE (NEGATIVE); Color Urine UA YELLOW; Glucose Urine UA NEGATIVE (Negative); Ketones Urine UA NEGATIVE (NEGATIVE); Leukocyte Esterase Urine UA NEGATIVE (NEGATIVE); Nitrite Urine UA NEGATIVE (Negative); Occult Blood Urine UA NEGATIVE (Negative); Protein Urine UA NEGATIVE (Negative); Specific Gravity Urine UA 1.025 (1.000-1.035)
[2022-12-01 18:23] LABS: Bacteria Urine Occasional (0-1); Mucus Urine 1+ (Negative); RBC Urine None Seen (0-5/HPF); Squamous Epithelial Cell Urine None Seen (0-5/HPF); WBC Urine 1-5/HPF (0-5/HPF)
[2022-12-02 04:24] LABS: Labcorp Hemoglobin (Hb) A1c 5.6 % (4.8-5.6)
== END ==
PROVIDERS: PCP Family Medicine; Referring Provider Orthopaedic Surgery; Visit Provider Orthopaedic Surgery
DX: Z01.818 Encounter for other preprocedural examination (principal); Z01.812 Encounter for preprocedural laboratory examination; R73.9 Hyperglycemia, unspecified; N39.0 Urinary tract infection, site not specified
CPT/HCPCS: 36415; 80048; 81001; 83036; 85025; 93005

== ENCOUNTER 2023-02-23 06:17 | Day surgery (SDC) | payer OTHER, SELFPAY ==
[2020-11-18 16:34] VITALS: BMI 28.2
[2023-02-11 09:27] VITALS: BMI 32.3
[2023-02-23] VITALS (12 sets, daily range): BP systolic 100–159; BP diastolic 66–81; PULSE 65–87; RESP 14–17; TEMP 35.9–36.4; O2SAT 95–98; BMI 32.3
--- NOTE | 2023-02-23 06:00 | DI.RAD.S_ITS ---
PROCEDURE: XR KNEE RT 1TO2V INDICATIONS: TKA TECHNIQUE: 2 view(s) of the knee acquired. COMPARISON: [facility], CR, XR KNEE LT 1TO2V, 11/18/2020, 15:41. FINDINGS: Bones: Patient is status post knee joint arthroplasty. Hardware components are in expected positions. Visualized bony structures are intact. Soft tissues: Overlying postoperative changes are noted. IMPRESSION: Total right knee arthroplasty in good position Approved by: Angus Ureña M.D. on 02/23/2023 at 19:33
[2023-02-23] MEDS: CELECOXIB 200 MG CAPSULE PO (06:38)
[2023-02-23] MEDS: VANCOMYCIN 1,000 MG/200 ML PIGGYBACK 200 MG IV (06:38)
[2023-02-23] MEDS: ACETAMINOPHEN 325 MG TABLET 975 MG PO (06:39)
[2023-02-23] MEDS: LACTATED RINGERS 1,000 ML 42 ML IV ×2 (06:39→08:51)
--- NOTE | 2023-02-23 07:39 | P.OP_ITS ---
Operative Date/Time/Diagnoses Date of procedure: 02/23/23 Time of procedure: 07:40 Pre-op diagnosis: right knee OA Post-op diagnosis: same Procedure & Clinicians Procedure: right total knee arthroplasty Same procedure as scheduled: Yes Surgeon: Marcia Stanley Pediatric Cardiologist: Reji Conley Anesthesia Type: Spinal Operative Notes Closure Type: primary Specimen(s): none sent Prosthetic devices, grafts, tissues, transplants, or devices: Stanley and nephew journey BCS 2 Estimated Blood Loss (mL): 250 Blood products transfused: none Procedure in detail: The patient was seen in the pre-operative area, where the patient identified the right knee as the operative site and this was marked with my initials. The patient received pre-operative antibiotics, and was taken to the operating room and placed on the operative table in the supine position. After satisfactory anesthesia, a multimedia instructional designer out was performed. The right leg was encircled with a tourniquet about the proximal thigh, and the leg was prepared from the toes to the tourniquet with ChloroPrep in the usual fashion and draped through sterile drapes. The leg was elevated and exsanguinated with Eschmark bandage and the tourniquet inflated to [250] mmHg pressure. A PA was used during the procedure and was essential for intraoperative retract ion and safe implantation of the components. The knee was approached through an approximately 18 cm incision centered over the patella and carried into the knee through a medial parapatellar arthrotomy. A portion of the medial and lateral meniscus was resected. Soft tissue was carefully mobilized around the patella the patella was measured with a caliper. Bone was resected from the patella and the patellar height was reconstituted with up an appropriate sized patellar component. A cover was then placed on the patella. A small amount of additional medial and lateral meniscus was resected. The distal femur was cut at 5?. A [+2] cut was used. It looked like an appropriate distal femoral cut and the cut was made without difficulty. An extramedullary guide was used for the tibial cut. 10 mm was resected off the least affected side.The tibia was prepared. The rotation was assessed. The patient was placed in extension residual medial and lateral meniscus as well as any residual bone was carefully resected. [No] additional tibia was resected. Hemostasis was achieved especially posteriorly. Additional local was injected into the posterior capsule. The extension gap was assessed and additional releases for gap balancing were performed as necessary. It was checked with the gap roof painter. The femoral component was trial was placed and the notch was finished. The rotation was assessed and the appropriate size femoral guide was placed on the distal femur and finishing cuts were made. There was no evidence of notching. The anterior, posterior and chamfer cuts were then made. The po sterior osteophytes and soft tissues were then removed. The posterior capsule was injected with part of a mixture of 60 ml 0.25% Marcaine mixed with 20 ml Exparel for post operative pain control. The remainder of this mixture was injected into the capsule and subcutaneous tissues during cement curing. The tibial and femoral components were then placed and the knee placed through a range of motion. Range of motion was [0-130], with good stability throughout the range. The trials were then removed, and the tibia was finished. The bone was prepared with pulsatile lavage, and dried with a sponge. Cement was applied and the final prosthetics placed. Excess cement was removed during and after cement curing. A separate batch of cement was mixed for the patella as the 1st batch hard a little early. A brief Betadine soak was performed. After confirming there was no extruded cement posteriorly, the final tibial insert was placed. The knee was copiously irrigated and the tourniquet deflated. Hemostasis was obtained with the Bovie cautery. A drain was placed and brought out superolaterally. The capsule was closed with interrupted nonabsorbable suture. The subcutaneous layer was closed with barbed sutures, and the skin with a running 3-0 V-Lock suture and Surgical glue. An Aquacel Ag dressing was applied and the patient was taken to recovery having tolerated the procedure well. Complications: none Post-operative Condition: stable Disposition: Acute Care Plan for aftercare: The patient will be maintained on a standard total knee replacement protocol with weight bearing as tolerated. The patient will receive aspirin and sequential compression devices for DVT prophylaxis. The patient will be discharged home when safe for the home environment.
--- NOTE | 2023-02-23 07:39 | PM.PREOP ---
Pre-operative Note Interval Note History & Physical reviewed/Exam performed by Physician: Yes Changes to H&P: No
[2023-02-23] MEDS: TRANEXAMIC ACID 1,000 MG VIAL 1000 MG INJ ×2 (08:00→09:35)
[2023-02-23] MEDS: CEFAZOLIN 2 GM/100 ML PREMIX 100 ML IV ×2 (08:00→16:08)
--- NOTE | 2023-02-23 08:22 | SUR.OPER ---
Supine on padded OR bed. Pillow under head, arms secured on padded armboards <90 degree abduction. Safety belt across torso. Non-operative leg secured with tape over blanket over lower leg. Operative leg secured in De[employer]o positioner. Foam padded brace at thigh of operative leg.
[2023-02-23] MEDS: BUPIVACAINE LIPOSOME 266 MG/20 ML VIAL INJ (08:45)
[2023-02-23] MEDS: BUPIVACAINE 0.25% (PF) 60 ML, EPINEPHrine 0.3 MG INJ (09:31)
[2023-02-23] MEDS: IBUPROFEN 400 MG TABLET PO ×3 (12:00→18:35)
[2023-02-23] MEDS: LACTATED RINGERS 1,000 ML 100 ML IV ×2 (12:00→21:55)
[2023-02-23] MEDS: ACETAMINOPHEN 325 MG TABLET 650 MG PO ×2 (12:01→18:36)
--- NOTE | 2023-02-23 14:06 | OT.IPNOTE ---
Attempted to see pt for OT eval. Pt states had prior L TKA in 11/2020 and has all OT equipment needs and his to assist at home as needed. Pt states feels that he does not need OT at this time and therefore discharge OT eval orders. Pt will continue to see PT while here in the hospital.
--- NOTE | 2023-02-23 14:15 | PT.IIE ---
Current Diagnoses Unilateral primary osteoarthritis, right knee (02/23/23) Surgery Performed Operation Date: 02/23/23 07:45 Actual Procedures p Total Knee Arthroplasty(Right) - Marcia Stanley MD Surgical History (Last Updated 02/11/23 @ 09:32 by Alexandria Jackson RN) History of carpal tunnel release of both wrists 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) History of total right hip arthroplasty (02/12/14) History of vasectomy (1976) Medical History (Last Updated 02/11/23 @ 10:10 by Alexandria Jackson RN) Anesthesia complication Depression Diabetes (~02/2020) Hearing impaired History of COVID-19 (2020) HTN (hypertension) Neuropathy Osteoarthritis Pneumonia Rheumatic fever Weight loss, intentional Physical Therapy Inpatient Evaluation/Re-Eval M1 PT/OT-IP Prior Functional Status Start: 02/23/23 13:53 Freq: NEEDED Status: Active Protocol: Document 02/23/23 13:53 AB (Rec: 02/23/23 14:15 AB [id number]) Medical Review Prior Functional Status Medical History Reviewed Yes Diet/Fluid Consistency Regular Communication Pt is able to express all needs. Mobility and Gait Pt ambulates with independence and no AD. Activities of Daily Living and IADL's Pt is IND with all ADLs and IADLs. Social History Household Members spouse Living Arrangements House Number of Floors (Floors) Two Floors Number of Stairs To Enter/Railing? 2 pathways: one without CARINE and one with 1 CARINE Home Environment Standard Height Toilet,Tub/ Shower Home Equipment Front Wheel Walker,Straight Cane,Shower Seat without Backrest,Grab Bars Near Toilet ,Grab Bars In Shower Additional Social History Comment Pt lives with who can assist 09/11 but not physically . M2 PT-IP Current Condition Start: 02/23/23 13:53 Freq: NEEDED Status: Active Protocol: Document 02/23/23 13:53 AB (Rec: 02/23/23 14:15 AB [id number]) Physical Therapy Current Condition Current Condition Evaluation Date 02/23/23 Treatment Diagnosis s/p right TKA; difficulty in walking Onset Date 02/23/23 M3 PT-IP Subjective Start: 02/23/23 13:53 Freq: NEEDED Status: Active Protocol: Document 02/23/23 13:53 AB (Rec: 02/23/23 14:15 AB [id number]) Subjective Physical Therapy Visit Type Type Initial Evaluation Visit Start Time 13:16 Visit Stop Time 13:46 Total Visit Minutes 30 Physical Therapy Visit Comments Patient Comments Pt is semi supine in bed and is agreeable to PT evaluation this PM. Therapy Pain Assessment Pain When Pain Assessed During Mobility Pain Present Pain Present Denied Pain M4 PT-IP Mobility and Gait Start: 02/23/23 13:53 Freq: NEEDED Status: Active Protocol: Document 02/23/23 13:53 AB (Rec: 02/23/23 14:15 AB [id number]) PT-Bed Mobility Assessment Rolling Type of Rolling Bilateral Level of Assist Standby Assistance Supine to Sit Supine to Sit Standby Assistance Sit to Supine Sit to Supine Standby Assistance Scooting Scooting to Edge of Bed Standby Assistance PT-Transfer Assessment Sit to and From Stand Sit to and from Stand Standby Assistance Equipment Transfer Assistive Device Gait Belt,Front Wheeled Walker Transfers Transfer Destination Bed Transfer Technique ambulated Transfer Ability Level of Assist Standby Assistance,Use of Upper Extremities Comments Mobility Comments The pt's BP in supine is 138/ 82 mmHg. He is able to perform bed mobility with SBA to sit at EOB on right side. The pt denies dizziness in sitting, and BP is stable at 142/77. He then performs STS with FWW and SBA, but requires VCs from PT for proper hand placement. In standing, he reports no symptoms and BP is 140/67. The pt is agreeable to attempt ambulation and ambulated 150ft with FWW and SBA and step to gait due to RLE weakness and ROM deficits. However he denies pain, only feeling pressure in his knee. Upon returning to room, the pt is able to perform bed mobility with SBA. He is assisted to comfortable semi supine position in bed, with all needs met, call light within reach. RN was notified of findings. Gait Assessment Gait Gait Assistance Required: Standby Assistance Distance (Feet) 150 Able to Maintain Weight Bearing Status Yes During Gait Assistive Devices Assistive Device Gait Belt,Front Wheeled Walker Gait Deviations General Gait Pattern Antalgic,Decreased Stride Length,Decreased Feet Clearance,Step-to Gait Factors Limiting Gait Function Factors Limiting Gait Function Decreased Activity Tolerance, Decreased Strength,Limited Range of Motion Comments Gait Comments See mobility commends above. Stair Climbing Assessment Comments Stair Climbing Comments N/t due to weakness and fatigue. PT-Balance Assessment Sitting Balance and Reactions Static Sitting Balance Ability Normal Dynamic Sitting Balance Ability Normal Standing Balance and Reactions Static Standing Balance Ability Normal Dynamic Standing Balance Ability Good Device Used FWW M5 PT-IP Objective Assessments Start: 02/23/23 13:53 Freq: NEEDED Status: Active Protocol: Document 02/23/23 13:53 AB (Rec: 02/23/23 14:15 AB [id number]) Orientation Orientation/Cognition Level of Alertness Alert Orientation Name,Age,Birthday,Month,Date, Year,Day of Week,Place, Situation Language Function Ability No Deficits Noted Safety Awareness Understands Safety Issues Memory Description No Deficits Noted Gross Range of Motion Upper Extremity ROM Assessment Within Functional Limits Lower Extremity ROM Assessment Right Impaired Impairments R knee AROM: 10-100 Strength Upper Extremity Strength Assessment Within Functional Limits Lower Extremity Strength Assessment Right Impaired M6 PT-IP Treatment Start: 02/23/23 13:53 Freq: NEEDED Status: Active Protocol: Document 02/23/23 13:53 AB (Rec: 02/23/23 14:15 AB [id number]) Physical Therapy Treatment Education Education Provided Precautions,Weight Bearing Status,Post-Op Packet,Safety Brace Education Patient M7 PT-IP Assessment and Plan Start: 02/23/23 13:53 Freq: NEEDED Status: Active Protocol: Document 02/23/23 13:53 AB (Rec: 02/23/23 14:15 AB [id number]) PT Summary Assessment and Plan Potential Rehabilitation Potential Good Status of Condition at Evaluation Stable Summary Impairments Pain,ROM,Strength,Balance,Bed Mobility,Transfers,Gait, Activity Tolerance Assessment Summary Edgar Harris is a 72 year old male patient who is s/p right TKA performed on 02/23/23. He demonstrates impairments consistent with this surgical procedure including RLE AROM deficits and gait deviations. However, the pt is able to perform all functional mobility with SBA and demonstrates good safety awareness. He ambulated 150ft with FWW, however did not attempt stairs this session due to weakness and fatigue. The pt's BP remained stable throughout mobility performed today and he denied having any symptoms of lightheadedness or dizziness. Based on his current level of function, PT recommends discharge to home with assistance and outpatient PT. He would benefit from skilled PT during the course of his hospitalization to improve to his highest level of function. Goals Bed Mobility Goal Independent Transfer Goal Independent,Front Wheeled Walker Gait Goal Independent,Front Wheel Walker Gait Distance 200 Other Goals Pt to be able to ambulate 100ft with SPC or LRAD to show improving strength and stability. Pt to ascend/descend 6 steps with 1 hand rail to show improving LE strength. Pt to ascend/descend 13 steps with 1 hand rail to show improving strength in order to reach 2nd floor of home. Days to Meet Goals 5 Frequency of Treatment Frequency Of Treatment Twice a Day Treatment Plan Physical Therapy Treatment Plan Bed Mobility Training,Transfer Training,Gait Training, Therapeutic Exercise,Balance Retraining,Post Op Education, Discharge Planning,Hot or Cold Pack,Neuromuscular Re-ed, Coordination Retraining,Manual Therapy Other Recommendations and Next Treatment Trial stairs if able Focus Weight Bearing Status Weight Bearing Status Weight Bear as Tolerated Recommendations To Nursing Amount of Assist Needed Standby Assistance Discharge Recommendations PT Discharge Recommendations Home with Assistance, Outpatient PT Transportation Needs at Discharge Private Vehicle
[2023-02-23] MEDS: DOCUSATE 100 MG CAPSULE PO (21:54)
[2023-02-23] MEDS: ASPIRIN EC 81 MG TABLET PO (21:54)
[2023-02-23] MEDS: METFORMIN HCL 500 MG TABLET PO (21:54)
[2023-02-24] VITALS: BP 126/80; PULSE 71; RESP 18; TEMP 36.1; O2SAT 96
[2023-02-24] MEDS: IBUPROFEN 400 MG TABLET PO ×4 (00:09→10:49)
[2023-02-24] MEDS: ACETAMINOPHEN 325 MG TABLET 650 MG PO ×3 (00:10→10:48)
[2023-02-24] MEDS: CEFAZOLIN 2 GM/100 ML PREMIX 100 ML IV (00:10)
[2023-02-24 04:00] VITALS: BP 127/77; PULSE 89; RESP 17; TEMP 36.2; O2SAT 94
[2023-02-24 04:40] LABS: Hematocrit 38.7 % (41-53); Hemoglobin 13.1 g/dL (13.5-17.5)
--- NOTE | 2023-02-24 06:51 | PM.DS.1 ---
History of Present Illness History of Present Illness Date Patient Seen: 02/24/23 Time Patient Seen: 06:52 Chief complaint: Right Total Knee Arthroplasty Narrative: Operative Date/Time/Diagnoses Date of procedure: 02/23/23 Time of procedure: 07:40 Pre-op diagnosis: right knee OA Post-op diagnosis: same Procedure & Clinicians Procedure: right total knee arthroplasty Same procedure as scheduled: Yes Surgeon: Marcia Stanley Material Damage Adjuster: Reji Conley Anesthesia Type: Spinal Operative Notes Closure Type: primary Specimen(s): none sent Prosthetic devices, grafts, tissues, transplants, or devices: Stanley and nephconnor juli BCS 2 Estimated Blood Loss (mL): 250 Blood products transfused: none Discharge Providers Provider Discharge Date: 02/24/23 Primary care physician: Mack Gallagher MD Consults: 02/23/23 06:00 Consult to Anesthesiology Routine Comment: Consulting Provider: Anesthesiologist Reason for consultation: Regional block for post operative pain control 02/23/23 11:34 Consult to Discharge Planning Routine Comment: Consult to Occupational Therapy Evaluate & Treat Comment: Physician Instructions: Evaluate and treat Consult to Physical Therapy Evaluate & Treat Comment: Physician Instructions: postop TKA protocol Discharge provider: Pratibha Staley PA-C Exam Vital Signs (past 8 hours): - 02/24/23 00:00 02/24/23 04:00 Temperature 96.9 F L 97.1 F L Pulse Rate 71 89 Respiratory Rate 18 17 Blood Pressure 126/80 127/77 Pulse Oximetry 96 94 Oxygen Flow Rate 0 0 Oxygen Delivery Method Room Air Oxygen Flow Rate 0 Objective Labs 02/24/23 04:08 Labs: Laboratory Results - last 24 hr 02/24/23 04:08 Hgb 13.1 L Hct 38.7 L PFSH Medical History (Updated 02/11/23 @ 10:10 by Alexandria Jackson RN) Anesthesia complication Hearing impaired History of COVID-19 (2020) Depression Osteoarthritis Weight loss, intentional Rheumatic fever HTN (hypertension) Neuropathy Pneumonia Diabetes (~02/2020) Surgical History (Updated 02/11/23 @ 09:32 by Alexandria Jackson RN) 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) History of vasectomy (1976) History of carpal tunnel release of both wrists History of total right hip arthroplasty (02/12/14) Social History household members: spouse Smoking Status: Former smoker alcohol intake: former Discharge Plan Discharge Plan Patient Disposition: Home Discharge orders & Medications Discharge Orders: Discharge (Order); Ordered 02/24/23 Ordered By: Pratibha Staley Prescriptions: New aspirin 81 mg Tablet,Delayed Release (Dr/Ec) 81 mg PO BID Qty: 1 0RF Continued metformin 500 mg Tablet 500 mg PO BID lisinopril 5 mg Tablet 5 mg PO DAILY oxycodone 5 mg Tablet 5 mg PO Q3HR PRN (Reason: Pain, Moderate (4-6)) Qty: 40 0RF Rx Instructions: Take 1-3 tablets every 3 hours as needed for postop knee pain acetaminophen 325 mg tablet 650 mg PO DAILY PRN (Reason: Pain) ibuprofen 400 mg tablet 400 mg PO Q4HR PRN (Reason: Pain) Discontinued aspirin 81 mg tablet,delayed release (DR/EC) 81 mg PO DAILY Follow up/Referrals: Mack Gallagher MD [Primary Care Provider] - Marcia Stanley MD [Physician] - As previously scheduled (Follow up with Miguel Ángel Ernandez PA-C, on 03/10/2023 @ 2:30 pm at [facility] in [place].) Diet/Activity/Treatments Diet: Diet as Tolerated Activity: Walk frequently! Cold/Heat Therapy: Ice to knee as needed for pain. Skin/Wound/Dressing Care Report to your healthcare provider any signs of infection, such as:: chills, fever, night sweats, unusual drainage and unusual redness Dressing: May remove RAFAEL wrap and shower on 02/26/2023. Leave dressing in place until follow up in office. No bathing or otherwise soaking incision. Call the office if the dressing becomes saturated inside. Visit Report/Discharge Packet Instructions: DI for Knee Replacement, DI for Prescription Opioid Use Stand Alone Forms: Patient Portal/API, Surgery Discharge Discharge Data Primary Care Provider: Mack Gallagher Attending Provider: Marcia Stanley VTE Deep Vein Thrombosis/Pulmonary Embolism Present on Admission: No
[2023-02-24 08:00] VITALS: BP 127/78; PULSE 76; RESP 20; TEMP 35.9; O2SAT 97
[2023-02-24 08:47] VITALS: BP 127/78
[2023-02-24] MEDS: lisinopriL 5 MG TABLET PO (08:47)
[2023-02-24] MEDS: METFORMIN HCL 500 MG TABLET PO (08:47)
[2023-02-24] MEDS: ASPIRIN EC 81 MG TABLET PO (08:47)
[2023-02-24] MEDS: DOCUSATE 100 MG CAPSULE PO (08:47)
--- NOTE | 2023-02-24 10:00 | PT.IPTN ---
Current Diagnoses Unilateral primary osteoarthritis, right knee (02/23/23) Surgery Performed Operation Date: 02/23/23 07:45 Actual Procedures p Total Knee Arthroplasty(Right) - Marcia Stanley MD Physical Therapy Treatment Note M2 PT-IP Current Condition Start: 02/23/23 13:53 Freq: NEEDED Status: Discharge Protocol: Document 02/23/23 13:53 AB (Rec: 02/23/23 14:15 AB [id number]) Physical Therapy Current Condition Current Condition Evaluation Date 02/23/23 Treatment Diagnosis s/p right TKA; difficulty in walking Onset Date 02/23/23 M3 PT-IP Subjective Start: 02/23/23 13:53 Freq: NEEDED Status: Discharge Protocol: Document 02/24/23 10:00 AB(2) (Rec: 02/24/23 11:49 AB(2) [id number]) Subjective Physical Therapy Visit Type Type Treatment Note Visit Start Time 10:00 Visit Stop Time 10:16 Total Visit Minutes 16 Number of MOLDER MACHINE TENDER Visits 0 Physical Therapy Visit Comments Patient Comments agreeable to do PT Therapy Pain Assessment Pain When Pain Assessed At Rest Pain Present Pain Present Pain Reported Location Left Knee Intensity 2 Scale Used Numeric (0 - 10) Pain Management Techniques Distraction,Modification of Treatment,Re-positioning, Timing of Activity with Medications M4 PT-IP Mobility and Gait Start: 02/23/23 13:53 Freq: NEEDED Status: Discharge Protocol: Document 02/24/23 10:00 AB(2) (Rec: 02/24/23 11:49 AB(2) [id number]) PT-Bed Mobility Assessment Supine to Sit Supine to Sit Standby Assistance PT-Transfer Assessment Sit to and From Stand Sit to and from Stand Standby Assistance,1 Person Assistance,Use of Upper Extremities Equipment Transfer Assistive Device Gait Belt,Front Wheeled Walker Orthotic/Prosthetic Devices or Brace: No Transfers Transfer Destination Chair,Toilet Transfer Technique ambulated Transfer Ability Level of Assist Standby Assistance,1 Person Assistance,Use of Upper Extremities Comments Mobility Comments pt completed supine to sit SBA . sit to stand SBA and ambulated to the toilet using FWW SBA. able to complete toileting needs SBA. ambulated from the toilet towards the sink using FWW SBA and was able to complete handwashing SBA while maintaining standing balance SBA using FWW for support. pt agreed to ambulate in the hallway and completed ~ 250ft using FWW SBA. pt sat on his chair. positioned on the chair. call light and table placed within reach. Gait Assessment Gait Gait Assistance Required: Standby Assistance Distance (Feet) 250 Able to Maintain Weight Bearing Status Yes During Gait Assistive Devices Assistive Device Gait Belt,Front Wheeled Walker Orthotic/Prosthetic Devices or Brace: No Gait Deviations General Gait Pattern Decreased Stride Length, Decreased Feet Clearance Factors Limiting Gait Function Factors Limiting Gait Function Decreased Activity Tolerance, Decreased Strength,Limited Range of Motion,Pain M5 PT-IP Objective Assessments Start: 02/23/23 13:53 Freq: NEEDED Status: Discharge Protocol: Document 02/23/23 13:53 AB (Rec: 02/23/23 14:15 AB [id number]) Orientation Orientation/Cognition Level of Alertness Alert Orientation Name,Age,Birthday,Month,Date, Year,Day of Week,Place, Situation Language Function Ability No Deficits Noted Safety Awareness Understands Safety Issues Memory Description No Deficits Noted Gross Range of Motion Upper Extremity ROM Assessment Within Functional Limits Lower Extremity ROM Assessment Right Impaired Impairments R knee AROM: 10-100 Strength Upper Extremity Strength Assessment Within Functional Limits Lower Extremity Strength Assessment Right Impaired M6 PT-IP Treatment Start: 02/23/23 13:53 Freq: NEEDED Status: Discharge Protocol: Document 02/24/23 10:00 AB(2) (Rec: 02/24/23 11:49 AB(2) [id number]) Physical Therapy Treatment Education Education Provided Safety M7 PT-IP Assessment and Plan Start: 02/23/23 13:53 Freq: NEEDED Status: Discharge Protocol: Document 02/24/23 10:00 AB(2) (Rec: 02/24/23 11:49 AB(2) [id number]) PT Summary Assessment and Plan Potential Rehabilitation Potential Good Summary Impairments Pain,ROM,Strength,Balance, Coordination,Sensation,Tone, Cognition,Bed Mobility, Transfers,Gait,Activity Tolerance Assessment Summary pt plans to go home and will have his spouse assist him as needed. pt requiring SBA with mobility using FWW and may go home when medically stable. Goals Bed Mobility Goal Independent Transfer Goal Independent,Front Wheeled Walker Gait Goal Independent,Front Wheel Walker Gait Distance 200 Other Goals Pt to be able to ambulate 100ft with SPC or LRAD to show improving strength and stability. Pt to ascend/descend 6 steps with 1 hand rail to show improving LE strength. Pt to ascend/descend 13 steps with 1 hand rail to show improving strength in order to reach 2nd floor of home. Days to Meet Goals 5 Frequency of Treatment Frequency Of Treatment Twice a Day Treatment Plan Physical Therapy Treatment Plan Bed Mobility Training,Transfer Training,Gait Training, Therapeutic Exercise,Balance Retraining,Post Op Education, Discharge Planning,Hot or Cold Pack,Neuromuscular Re-ed, Coordination Retraining,Manual Therapy Weight Bearing Status Weight Bearing Status Weight Bear as Tolerated Recommendations To Nursing Amount of Assist Needed Standby Assistance Discharge Recommendations PT Discharge Recommendations Home with Assistance, Outpatient PT Transportation Needs at Discharge Private Vehicle
--- NOTE | 2023-02-24 11:23 | PC.NURSE ---
Pt is dressed and ready for discharge home with Spouse. IV has been removed. Went over d/c instructions with Pt and Spouse-discussed d/c meds, time of last dose, reviewed stroke education, dsg, showering, and follow up. Encouraged Pt to drink plenty of fluids to prevent constipation and dehydration and reviewed s/s of infection. Pt denied further questions and was taken out via w/c by RN to POV with Spouse and all belongings.
--- NOTE | 2023-02-24 13:16 | CM.DANOTE ---
Patient is a 72 yo male who was brought up to the floor SDC from PACU for RTKA. Pt has REG PPO for insurance and his PCP is Mack Gallagher. EMR was reviewed. Per Ortho PA, pt tolerated procedure well and voiding independently, pain controlled, tolerating diet and has worked with PT and medically stable to d/c home with outot f/u. Per PT, pt lives in [place] with spouse and is independent at baseline and does not use DME and spouse able to assist with minimal physical assist and recommending safe d/c home with outpt PT. No bedside assessment completed due to triage needs and no d/c barriers. Plan: Patient to d/c home via spouse POV today and outpt f/u and outpt PT and no further SW needs at this time. LAINEY Barr Discharge Planning/Care Management Pre-Anesthesia Assessment Start: 02/11/23 09:27 Freq: Status: Discharge Protocol: Document 02/11/23 09:27 [facility] (Rec: 02/11/23 10:17 [facility] [id number]) Pre-Anesthesia Assessment Preferred Name Edgar Patient Information Reviewed Via Phone Assessment Assessment Completed With Patient Diagnostic Results BMP/CMP,CBC,EKG Comment Labs/EKG @ 12/01/22 Primary Care Provider Mack Gallagher Seen Specialist in Last 12 Months Yes Specialist Seen Orthopedist Primary Language Tuvaluan Preferred Language Tuvaluan Chain Saw Operator Required No Height 185.42 cm Weight 111.13 kg Body Mass Index (BMI) 32.3 Hearing Ability Hearing Impaired Visual Assist Glasses Dentition Type Teeth, Natural Present Barriers to Learning None Hx Anesthesia Reactions Yes: Syncopal episode while placing spinal, syncope with standing nex day Hx Family Anesthesia Reaction No Hx Malignant Hyperthermia No Hx Blood Transfusions No Anesthesia Review Requested No Tile Setter No alcohol intake former Smoking Status Former smoker how long ago did patient quit smoking 09/30/72 Substance Use Type does not use Pain Present Pain Reported Musculoskeletal Symptoms Abnormal Gait,Arthralgias, Difficulty Walking,Joint Pain, Numbness History of Falling (Recent or History of No ) Patient is completely paralyzed or No completely immobile Mental Status Oriented to own ability Is patient on oxygen? No Does patient have ASKEW/SOB No Hx Sleep Apnea No CPAP/BIPAP use not prescribed Currently Taking a Beta Francis No Hx Chest Pain No Hx SOB No Hx Syncope or Dizziness Yes: Syncope with placing spinal and standing after last knee surgery Anti-Coagulant Therapy No Has a Thread Winder No Cardiac Testing No Hx Pacemaker/ICD No Pacemaker Rep Required? No Cardiac Clearance Received Not Applicable Diet Type At Home Other Dysphagia No: Whole 30 Gastrointestinal Symptoms None Urinary Catheter Present No Hx Urinary Self Catheterization No Diabetes Yes: Pt checks blood sugar twice a day HgbA1C 5.6 Date 12/01/22 Hx Drug Resistant Organism No Presence of External or Internal Medical Yes: Right hip, left knee Devices prosthesis Received a COVID vaccine? Yes Received all doses? Yes Marital Status Lives With spouse Current Living Arrangements House Number of Floors (Floors) Two Floors Support System Spouse Does the Patient Have Assistance After Yes Surgery Patient Discharge Plan Description Return Home Comment Pt not advised on length of stay per surgeon Feels Safe in Current Environment Yes Been Physically Hurt or Threatened By a No Person in Current Environment Do you have thoughts of harming yourself None or others? Are you currently considering suicide? No Do you have a plan to hurt yourself or No Plan others? Do You Have Any Spiritual Beliefs That No May Affect Your HC Choices? Do You Have Any Cultural Practices That No May Affect Your HC Choices? Who Can We Speak to About Patient's Care Family, friends Identifying Code for Release of Patient Declines to issue Information Health Care Proxy/Next of Kin Bhakti () Health Care Proxy or cell: Emergency Contact Name Bhakti () Emergency Contact or cell: [phone] Advance Directives? Yes Advance Directives on File No Requested Patient Bring Advanced Yes Directives DOS Power of Engineer Steam Yes Power of Engineer Steam Name Bhakti () Power of Engineer Steam or cell: PAC Instructions Diabetes instructions,Durable medical equipment,Medications to take/avoid,Nasal antibiotic ,No ETOH/petroleum product on skin DOS,NPO,Post-op transportation,Pre-surgical wash,Sensory aids,Sturdy shoes /comfortable clothes,Do not bring valuables and remove jewelry
== END 2023-02-24 11:25 | disposition home or self-care (01) ==
LOC: OR 06:19 → AC 06:19
PROVIDERS: PCP Family Medicine; Referring Provider Orthopaedic Surgery; Visit Provider Orthopaedic Surgery
PROC: 0SRC0JZ Replacement of Right Knee Joint with Synthetic Substitute, Open Approach (ICD-10-PCS; CPT 27447; principal; 2023-02-23 07:45)
DX: M17.11 Unilateral primary osteoarthritis, right knee (principal); I10 Essential (primary) hypertension; E11.9 Type 2 diabetes mellitus without complications; Z79.84 Long term (current) use of oral hypoglycemic drugs
CPT/HCPCS: 27447; 36415; 73560; 82962; 85014; 85018; 97116; 97161; 97535; C1776; C9290; J0171; J0690; J1100; J2250; J2405; J2704; J3010